=== PATIENT | female | born 1995 | race American Indian/Alaskan Native ===

== ENCOUNTER 2017-11-04 02:11 | Day surgery (SDC) | payer SELFPAY ==
[2017-11-04 02:48] LABS: Basophils # (Auto) 0.1 K/mm3 (0.0-0.1); Basophils % (Auto) 0.6 % (0.0-1.8); Eosinophils # (Auto) 0.1 K/mm3 (0.0-0.4); Eosinophils % (Auto) 0.8 % (0.0-4.3); Hematocrit 36.1 % (30.3-42.9); Hemoglobin 12.6 gm/dl (10.1-14.3); Lymphocytes # (Auto) 2.1 K/mm3 (1.2-5.4); Lymphocytes % (Auto) 19.3 % (13.4-35.0); Mean Corpuscular HGB Conc 35 % (30-34); Mean Corpuscular Hemoglobin 28 pg (28-32); Mean Corpuscular Volume 80 fl (79-97); Monocytes # (Auto) 0.8 K/mm3 (0.0-0.8); Monocytes % (Auto) 7.5 % (0.0-7.3); Platelet Count 219 K/mm3 (140-440); Red Blood Count 4.49 M/mm3 (3.65-5.03); Red Cell Distribution Width 14.3 % (13.2-15.2)
[2017-11-04] MEDS ORDERED: ZOFRAN IV ONE (02:59)
[2017-11-04] MEDS ORDERED: NACL 0.9% 1000 ML 1,000 ML IV ONE (02:59)
[2017-11-04] MEDS ORDERED: MORPHINE IV ONE (02:59)
--- NOTE | 2017-11-04 03:24 | Emergency Department Report ---
ED Female HPI - General Chief complaint: Vaginal Bleeding Stated complaint: MISSED AB Time Seen by Provider: 11/04/17 02:49 Source: patient Mode of arrival: Ambulatory Limitations: No Limitations - History of Present Illness Initial comments: 21-year-old female with past medical history one previous , one child, and sickle cell trait presents to the hospital with complaints of intermittent heavy vaginal bleeding 2 weeks and passing a fetus prior to arrival. Patient did not know she was . She saw her MANAGER CATEGORY doctor approximately 12 weeks ago and received that here after having her blood and urine tested for . The last 2 weeks patient has had 2 separate episodes of one day of heavy vaginal bleeding that spontaneously resolved. Patient started having heavy vaginal bleeding one hour prior to arrival. Patient having intermittent moderate cramping suprapubic abdominal pain. She denies lightheadedness, dizziness, shortness of breath, or syncope. Her MANAGER CATEGORY doctor is in [place]. Patient presents with an aborted formed fetus which was sent to the lab. - Related Data Home Medications Medication Instructions Recorded Confirmed Last Taken No Known Home Medications [No 11/04/17 11/04/17 Unknown Reported Home Medications] Allergies Allergy/AdvReac Type Severity Reaction Status Date / Time No Known Allergies Allergy Verified 11/04/17 05:54 ED Review of Systems ROS: Stated complaint: MISSED AB Other details as noted in HPI Comment: All other systems reviewed and negative ED Past Medical Hx - Past Medical History Additional medical history: Sickle Cell Trait - Surgical History Past Surgical History?: No - Social History Smoking Status: Current Every Day Smoker Substance Use Type: Marijuana - Medications Home Medications: Home Medications Medication Instructions Recorded Confirmed Last Taken Type No Known Home Medications [No 11/04/17 11/04/17 Unknown History Reported Home Medications] ED Physical Exam - General Limitations: No Limitations - Other Other exam information: General: No limitations, patient is alert in no acute distress Head exam: Atraumatic, normocephalic Eyes exam: Normal appearance ENT: Moist mucous membrane, normal oropharynx Neck exam: Normal inspection, full range of motion, no meningismus nontender Respiratory exam: Clear to auscultation bilateral, no wheezes, rales, crackles Cardiovascular: Regular rhythm, mild tachycardia Abdomen: Soft, nondistended, mild suprapubic tenderness, with normal bowel sounds, no rebound, or guarding. Patient presents to the ED with a small fetus Extremity: Full range of motion normal inspection no deformity Back: Normal Inspection, full range of motion, no tenderness Neurologic: Alert, oriented x3, cranial nerves intact, no motor or sensory deficit Psychiatric: normal affect, normal mood Skin: Warm, dry, intact ED Course Vital Signs 11/04/17 11/04/17 11/04/17 02:20 02:54 03:00 Temperature 98 F Pulse Rate 108 H 94 H Respiratory 18 18 Rate Blood Pressure 111/71 108/66 O2 Sat by Pulse 100 100 99 Oximetry 11/04/17 11/04/17 11/04/17 03:10 03:15 03:20 Temperature Pulse Rate 84 Respiratory 18 18 18 Rate Blood Pressure 114/78 O2 Sat by Pulse 100 99 Oximetry 11/04/17 11/04/17 11/04/17 03:50 04:06 04:16 Temperature Pulse Rate 68 Respiratory 18 22 Rate Blood Pressure 114/78 114/78 O2 Sat by Pulse 100 Oximetry 11/04/17 11/04/17 11/04/17 04:42 04:45 05:00 Temperature Pulse Rate 86 82 87 Respiratory 21 21 20 Rate Blood Pressure 114/78 114/78 110/66 O2 Sat by Pulse 100 100 98 Oximetry 11/04/17 11/04/17 11/04/17 05:15 05:31 05:45 Temperature Pulse Rate 72 89 75 Respiratory 20 17 18 Rate Blood Pressure 106/64 118/61 118/61 O2 Sat by Pulse 99 99 98 Oximetry - Reevaluation(s) Reevaluation #1: 11/04/17 05:06 bp stable, sbp 110, pt resting and comfortable - Consultations Consultation #1: 11/04/17 05:04 case d/w Dr Patrick Breen, pole maker telecommunications support, will come down to evaluate pt ED Medical Decision Making - Lab Data Result diagrams: 11/04/17 02:33 11/04/17 02:30 Lab Results 11/04/17 11/04/17 11/04/17 Range/Units 02:30 02:33 02:33 WBC 11.0 (4.5-11.0) K/mm3 RBC 4.49 (3.65-5.03) M/mm3 Hgb 12.6 (10.1-14.3) gm/dl Hct 36.1 (30.3-42.9) % MCV 80 (79-97) fl MCH 28 (28-32) pg MCHC 35 H (30-34) % RDW 14.3 (13.2-15.2) % Plt Count 219 (140-440) K/mm3 Lymph % (Auto) 19.3 (13.4-35.0) % [place] % (Auto) 7.5 H (0.0-7.3) % Eos % (Auto) 0.8 (0.0-4.3) % Baso % (Auto) 0.6 (0.0-1.8) % Lymph # 2.1 (1.2-5.4) K/mm3 [place] # 0.8 (0.0-0.8) K/mm3 Eos # 0.1 (0.0-0.4) K/mm3 Baso # 0.1 (0.0-0.1) K/mm3 Seg Neutrophils % 71.8 H (40.0-70.0) % Seg Neutrophils # 7.9 H (1.8-7.7) K/mm3 Sodium 134 L (137-145) mmol/L Potassium 3.8 (3.6-5.0) mmol/L Chloride 100.0 (98-107) mmol/L Carbon Dioxide 21 L (22-30) mmol/L Anion Gap 17 mmol/L BUN 13 (7-17) mg/dL Creatinine 0.5 L (0.7-1.2) mg/dL Estimated GFR > 60 ml/min BUN/Creatinine Ratio 26 % Glucose 90 (65-100) mg/dL Calcium 9.9 (8.4-10.2) mg/dL HCG, Qual (Negative) HCG, Quant 92970 H (0-4) mIU/mL Blood Type Antibody Screen 11/04/17 11/04/17 Range/Units 02:33 02:33 WBC (4.5-11.0) K/mm3 RBC (3.65-5.03) M/mm3 Hgb (10.1-14.3) gm/dl Hct (30.3-42.9) % MCV (79-97) fl MCH (28-32) pg MCHC (30-34) % RDW (13.2-15.2) % Plt Count (140-440) K/mm3 Lymph % (Auto) (13.4-35.0) % [place] % (Auto) (0.0-7.3) % Eos % (Auto) (0.0-4.3) % Baso % (Auto) (0.0-1.8) % Lymph # (1.2-5.4) K/mm3 [place] # (0.0-0.8) K/mm3 Eos # (0.0-0.4) K/mm3 Baso # (0.0-0.1) K/mm3 Seg Neutrophils % (40.0-70.0) % Seg Neutrophils # (1.8-7.7) K/mm3 Sodium (137-145) mmol/L Potassium (3.6-5.0) mmol/L Chloride (98-107) mmol/L Carbon Dioxide (22-30) mmol/L Anion Gap mmol/L BUN (7-17) mg/dL Creatinine (0.7-1.2) mg/dL Estimated GFR ml/min BUN/Creatinine Ratio % Glucose (65-100) mg/dL Calcium (8.4-10.2) mg/dL HCG, Qual Positive (Negative) HCG, Quant (0-4) mIU/mL Blood Type O POSITIVE Antibody Screen Negative - Radiology Data Radiology results: report reviewed EXAM: US OB TRANSVAGINAL / fetus HISTORY: vaginal bleeding/passed a fetus prior to arrival TECHNIQUE: Transvaginal imaging was obtained the pelvis including Doppler interrogation of the uterus and adnexa. FINDINGS: The uterus is anteverted measuring 11.4 cm x 6.3 cm x 7.6 cm. The endometrial thickness is 24.2 mm. The endometrium is heterogeneous with a non specific 1.4 cm cystic structure within the endometrium. Vaginal canal is fluid-filled with low level echoes. The overall findings are compatible with retained products of conception. Free fluid is not seen. The left ovary is normal size contour and echotexture measuring 2.9 cm 1.6 cm x 2 cm The right ovary measures 4.2 cm x 1.7 cm x 2.2 cm. Within the right ovary is a complex 2 cm cyst consistent with a corpus luteum cyst. IMPRESSION: Abnormally thickened heterogeneous endometrium with cystic changes along with fluid in low level echoes in the vaginal canal. The overall findings are compatible with retained products of conception and blood. No evidence of an intact IUP or ectopic . 2 cm complex cyst right ovary most likely representing corpus luteum cyst - Medical Decision Making Miscarriage normal h/h normal vitals Dr breen plans to take to [place] - Differential Diagnosis miscarriage, missed AB, anemia Critical Care Time: No Critical care attestation.: If time is entered above; I have spent that time in minutes in the direct care of this critically ill patient, excluding procedure time. ED Disposition Clinical Impression: Miscarriage Disposition: DC- TO HOME OR SELFCARE Is pt being admited?: No Does the pt Need Aspirin: No Condition: Stable Time of Disposition: 06:09
[2017-11-04 03:47] LABS: BUN/Creatinine Ratio 26; Blood Urea Nitrogen 13 mg/dL (7-17); Calcium 9.9 mg/dL (8.4-10.2); Hemolysis Index 1
--- NOTE | 2017-11-04 04:38 | Ultrasound Report ---
FINAL REPORT EXAM: US OB TRANSVAGINAL HISTORY: vaginal bleeding/passed a fetus prior to arrival TECHNIQUE: Transvaginal imaging was obtained the pelvis including Doppler interrogation of the uterus and adnexa. FINDINGS: The uterus is anteverted measuring 11.4 cm x 6.3 cm x 7.6 cm. The endometrial thickness is 24.2 mm. The endometrium is heterogeneous with a non specific 1.4 cm cystic structure within the endometrium. Vaginal canal is fluid-filled with low level echoes. The overall findings are compatible with retained products of conception. Free fluid is not seen. The left ovary is normal size contour and echotexture measuring 2.9 cm 1.6 cm x 2 cm The right ovary measures 4.2 cm x 1.7 cm x 2.2 cm. Within the right ovary is a complex 2 cm cyst consistent with a corpus luteum cyst. IMPRESSION: Abnormally thickened heterogeneous endometrium with cystic changes along with fluid in low level echoes in the vaginal canal. The overall findings are compatible with retained products of conception and blood. No evidence of an intact IUP or ectopic . 2 cm complex cyst right ovary most likely representing corpus luteum cyst
--- NOTE | 2017-11-04 04:40 | Ultrasound Report ---
FINAL REPORT EXAM: US OB < = 14 WEEKS FETUS HISTORY: vaginal bleeding/passed a fetus prior to arrival TECHNIQUE: Transabdominal imaging was obtained the pelvis including Doppler interrogation of the uterus and adnexa. FINDINGS: The uterus is anteverted measuring 11.4 cm x 6.3 cm x 7.6 cm. The endometrial thickness is 24.2 mm. The endometrium is hyperechoic having a heterogeneous echotexture with non specific cystic changes measure up to 1.4 cm in diameter. The findings are compatible with retained products of conception and blood. There also low level echoes in the vaginal canal with fluid. For free fluid is not seen in the pelvis. The left ovary is normal in size contour blood flow and echotexture measuring 2.9 cm x 1.6 cm x 2 cm. The right ovary measures 4.2 cm x 1.7 cm x 2.2 cm. Within the right ovary is a complex cyst measuring 2 cm in diameter compatible with corpus luteum cyst. IMPRESSION: Abnormally thickened echogenic endometrium with cystic changes along with low level echoes and fluid in the vaginal canal. The findings are compatible with retained products of conception and blood. No evidence of an intact IUP or ectopic . 2 cm complex cyst in the right ovary most likely representing corpus luteum cyst
--- NOTE | 2017-11-04 05:42 | Short Stay Summary ---
Short Stay Documentation Date of service: 11/04/17 Narrative H&P: Pt is a 21-year-old black female LMP 12 weeks ago presents to the hospital with complaints of intermittent heavy vaginal bleeding 2 weeks and passing a fetus prior to arrival. Patient did not know she was . She saw her EGG PROCESSING SUPERVISOR doctor approximately 12 weeks ago and received Depoprovera. The last 2 weeks patient has had 2 separate episodes of one day of heavy vaginal bleeding that spontaneously resolved. Patient started having heavy vaginal bleeding one hour prior to arrival. Patient having intermittent moderate cramping suprapubic abdominal pain. She denies lightheadedness, dizziness, shortness of breath, or syncope. Her EGG PROCESSING SUPERVISOR doctor is in [place]. Pelvic u/s showed uterus 11.4 x 6.3 x 7.6cm with endometrial thickness consistent with retained POC. She will therefore be admitted for a D&C. - History Principal diagnosis: Incomplete H&P: obtained from office Past Medical History: other (sickle cell trait) Past Surgical History: No surgical history Social history: no significant social history, single - Allergies and Medications Current Medications: Allergies No Known Allergies Allergy (Unverified 11/04/17 02:30) Home Medications Medication Instructions Recorded Confirmed Last Taken Type No Known Home Medications [No 11/04/17 11/04/17 Unknown History Reported Home Medications] - Physical exam General appearance: mild distress Integumentary: no rash HEENT: Atraumatic Lungs: Clear to auscultation Breasts: deferred Heart: Regular rate Gastrointestinal: normal Female Genitourinary: other (enalrged uterus with blood in vaginal vault) Rectal Exam: deferred Extremities: No edema Neurological: Normal speech - Brief post op/procedure progress note Date of procedure: 11/04/17 Pre-op diagnosis: Incomplete Post-op diagnosis: same Procedure: D&C Anesthesia: MAC Findings: A 10-12 weeks size uterus with large amounts of blood clots and POC Surgeon: LASHAWN MAZARIEGOS Estimated blood loss: other (200ml) Pathology: list (POC) Specimen disposition: to lab Condition: stable - Hospital course Hospital course: Unremarkable. - Disposition Condition at discharge: Good Disposition: DC-01 TO HOME OR SELFCARE - Discharge Diagnoses (1) Incomplete Status: Resolved Short Stay Discharge Plan Activity: no restrictions Diet: regular Follow up with: PRIMARY CARE, [Primary Care Provider] - 7 Days LASHAWN MAZARIEGOS MD [Staff Physician] - 7 Days Forms: Accompanied Note Prescriptions: Doxycycline [Vibramycin CAP] 100 mg PO Q12HR #14 capsule Ibuprofen [Motrin] 800 mg PO Q8HR PRN #30 tablet PRN Reason: Pain, Moderate (4-6) Methylergonovine Maleate [Methergine] 0.2 mg PO Q8HR #6 tablet
[2017-11-04] MEDS ORDERED: ANCEF/STERILE WATER 2 GM/20 ML 2 GM/20 ML SYRINGE IV NR (06:00)
[2017-11-04] MEDS ORDERED: LACTATED RINGERS 1,000 ML IV SCH (06:00)
[2017-11-04] MEDS ORDERED: SILVER NITRATE TP ONE (06:36)
[2017-11-04] MEDS ORDERED: METHERGINE IM ONE (06:37)
[2017-11-04] MEDS ORDERED: NACL 0.9% 1000 ML 1,000 ML ONE ×2 (07:01→08:12)
[2017-11-04] MEDS ORDERED: VERSED ONE (07:07)
--- NOTE | 2017-11-04 07:33 | Anesthesia Consultation ---
Anesthesia Consult and Med Hx - Airway Anesthetic Teeth Evaluation: Good ROM Head & Neck: Adequate Mental/Hyoid Distance: Adequate Mallampati Class: Class I Intubation Access Assessment: Good - Pulmonary Exam CTA: Yes - Cardiac Exam Cardiac Exam: RRR - Pre-Operative Health Status ASA Pre-Surgery Classification: ASA1 Proposed Anesthetic Plan: General - Pulmonary Hx Respiratory Symptoms: No - Cardiovascular System Hx Hypertension: No Hx Coronary Artery Disease: No - Central Nervous System Hx Neuromuscular Disorder: No Hx Seizures: No - Hematic Hx Anemia: Yes (sickle cell trait)
--- NOTE | 2017-11-04 07:43 | Operative Report ---
Operative Report Operative Report: PREOPERATIVE DIAGNOSIS: Incomplete POSTOPERATIVE DIAGNOSIS: Same OPERATIVE PROCEDURE: Dilatation and curettage. SURGEON: John Breen MD ANESTHESIA: Gen. mask ANESTHESIOLOGIST: Dr. Ervin ESTIMATED BLOOD LOSS: 200mls FINDINGS: A 10-12 week size uterus with large amounts of blood clots and products of conception COMPLICATIONS: None COUNTS: Correct x3. PROCEDURE: After the patient was correctly identified as the patient, and after general anesthesia was administered, the patient was prepped and draped in the usual sterile fashion and placed in dorsal lithotomy position. First, the bladder was emptied using a straight catheter. Next, a speculum was placed in the vaginal vault and the anterior lip of the cervix was grasped using a single-tooth tenaculum. The uterus was sounded to 12 cm. The cervical os was sequentially dilated, and a 10 mm vaccurette was used to suction blood and products of conception from the uterine cavity. After all the products of conception were removed, the procedure was considered complete. All instruments were removed from the vagina. The patient tolerated the procedure well and was transferred to the recovery room in stable condition.
[2017-11-04] MEDS ORDERED: DILAUDID IV PRN (07:55)
[2017-11-04] MEDS ORDERED: ZOFRAN ONE (08:00)
[2017-11-04] MEDS ORDERED: TORADOL ONE (08:00)
--- NOTE | 2017-11-04 08:01 | Post Anesthesia Evaluation ---
- Post Anesthesia Evaluation Patient Participated: Yes Airway Patent: Yes Stable Respiratory Function: Yes Nausea/Vomiting: No Temp > 96.8F: Yes Pain Manageable: Yes Adequeate Hydration: Yes Anesthesia Complications: No
[2017-11-04 10:37] VITALS: BP 110/85
== END 2017-11-04 09:30 | disposition home or self-care (01) ==
LOC: OR 02:11 → ED 02:11 → EDSTATUS 08:53 → OR 09:30
PROVIDERS: ATTEND Emergency Medicine
DX: O03.4 Incomplete spontaneous abortion without complication (principal); D57.3 Sickle-cell trait; Z3A.14 14 weeks gestation of pregnancy
CPT/HCPCS: 36415; 59812; 76801; 76817; 80048; 84702; 84703; 85025; 86850; 86900; 86901; 88300; 88305; J0690; J1885; J2210; J2250; J2270; J2405; J7030